=== PATIENT | female | born 2000 | race Caucasian/White ===

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

== ENCOUNTER 2019-02-17 09:27 | Inpatient (IN) | payer OTHER ==
[2019-02-17] MEDS ORDERED: BUTORPHANOL TARTRATE 1 MG/ML VIAL IVPB ONE (09:54)
[2019-02-17] MEDS ORDERED: AMPICILLIN - 2 GM in SODIUM CHLORIDE 100 ML IVPB ONE (09:55)
[2019-02-17] MEDS ORDERED: AMPICILLIN SODIUM 2 GM VIAL ONE (09:59)
[2019-02-17] MEDS ORDERED: DEXTROSE 5%-LACTATED RINGERS 1,000 ML IV SCH (10:00)
--- NOTE | 2019-02-17 10:02 | HP ---
Past Medical History - Admission Chief Complaint: PPROM History of Present Illness: 18yo @ 35.3wks by AJITH 03/21/19 who presents with PPROM 8:30AM, clear fluid. No VB. Denies ctx. +FM Preg uncomplicated History Source: Patient - Past Medical History ...: 1 ...Para: 0 ... Weeks Gestation by Dates: 35.3 ...EDC by Dates: 03/21/19 - Past Surgical History Past Surgical History: Yes: None Hx Myomectomy: No Hx Transabdominal Cerclage: No - Smoking History Smoking history: Never smoked Aproximately how many cigarettes per day: 0 - Alcohol/Substance Use Hx Alcohol Use: No Home Medications - Allergies Allergies/Adverse Reactions: Allergies Allergy/AdvReac Type Severity Reaction Status Date / Time No Known Allergies Allergy Verified 02/17/19 10:00 - Home Medications Home Medications: Ambulatory Orders Ferrous Sulfate [Feosol] 325 mg PO DAILY 11/30/18 Vitamins (Sjr) - 1 tab PO DAILY 11/30/18 Review of Systems - Review of Systems Constitutional: denies: No Symptoms, Chills, Diaphoresis, Fever, Lethargy, Loss of Appetite, Malaise, Night Sweats, Unintentional Wgt. Loss, Weakness, Other Cardiovascular: denies: No Symptoms, Chest Pain, Edema, Palpitations, Shortness of Breath, Other Respiratory: denies: No Symptoms, Cough, Exercise Intolerance, Hemoptysis, Orthopnea, PND, Snoring, SOB, SOB on Exertion, Wheezing, Other Gastrointestinal: denies: No Symptoms, Abdominal Pain, Bloating, Constipation, Diarrhea, Dysphagia, Indigestion, Melena, Nausea, Rectal Bleeding, Vomiting, Vomiting Blood, Other Physical Exam - Maternity Constitutional: Yes: Well Nourished, No Distress, Calm - Abdominal Exam/OB Number of Fetuses: Single Presentation: Vertex Contractions: Yes Regularity: Irritability Intensity: Unaware Monitor Mode: External Category: I Accelerations: Non-Uniform Decelerations: None - Vaginal Exam/OB Vaginal Bleediing: No Speculum Exam: Yes (copious clear fluid) Dilatation (cm): 3.5 Effacement (%): 100 Amniotic Membrane Status: Ruptured Nitrazine Test: Positive Amniotic Fluid: Yes: Clear Station: -3 - Physical Exam Edema: No Assessment/Plan 18yo @ 35.3wks here with PPROM, clear fluid Admit to L&D Amp for GBS positive Augment after 4 hours if needed with pitocin Discussed pain management, epidural prn Cat I tracing Anticipate KADE Hyatt MD
[2019-02-17 10:20] LABS: BASO % 0.3 % (0-2.0); EOS % 0.3 % (0-4.5); HEMATOCRIT 38.1 % (32.4-45.2); HEMOGLOBIN 12.4 GM/dL (10.7-15.3); LYMPH % 11.2 % (8-40); MCH 28.3 pg (25.7-33.7); MCHC 32.6 g/dl (32.0-36.0); MEAN CELL VOLUME 86.9 fl (80-96); MEAN PLT VOLUME 9.3 fl (7.5-11.1); MONO % 7.2 % (3.8-10.2); PLATELET COUNT 232 K/MM3 (134-434); RBC 4.39 M/mm3 (3.60-5.2); RDW 13.2 % (11.6-15.6); WHITE BLOOD COUNT 12.2 K/mm3 (4.0-10.0)
[2019-02-17 10:42] LABS: INR 0.95 (0.83-1.09); PROTHROMBIN TIME (PATIENT) 11.2 SEC (9.7-13.0)
[2019-02-17 10:44] LABS: ACTIVATED PTT 31.8 SECONDS (25.2-36.5)
[2019-02-17 10:52] VITALS: BMI 32.4
[2019-02-17 10:53] LABS: CALCIUM 8.8 mg/dL (8.5-10.1); CREATININE 0.4 mg/dL (0.55-1.3)
[2019-02-17 11:42] LABS: RPR NONREACTIVE (NONREACTIVE)
[2019-02-17] MEDS ORDERED: AMPICILLIN SODIUM 1 GM VIAL ONE ×2 (13:55→18:08)
[2019-02-17] MEDS: AMPICILLIN - 1 GM in SODIUM CHLORIDE 100 ML IVPB SCH ×2 (14:02→18:05)
--- NOTE | 2019-02-17 15:25 | PN ---
Progress Note, Labor Vaginal Exam #1 Labor Exam Date: 02/17/19 Labor Exam Time: 03:00 Heart Rate (range): reactive Dilatation: 3 Effacement (%): 60 Amniotic Membrane Status: Leaking Presentation: Vertex/Position Station: -3 (18 y/o G1 @ 35+wks, PPROM, reactive FHT, no evidence of chorio, stable maternal condition. Patient was counseled regarding PPROM, IOL, and PTD. -Pitocin Augmentation -Beta series -Continuous monitoring)
[2019-02-17] MEDS ORDERED: OXYTOCIN 30 UNITS in 0.9% NS 30 UNIT/500 ML INFUS.BAG IVPB SCH (15:30)
[2019-02-17] MEDS ORDERED: BETAMET ACET/BETAMET NA PH 30 MG/5 ML VIAL IM ONE (15:34)
[2019-02-17] MEDS ORDERED: FENTANYL/BUPIVACAINE/NS/PF - PCEA - 50 ML DISP.SYRIN EP ONE (17:30)
--- NOTE | 2019-02-17 17:32 | PN ---
Ante-Partal Exam - Subjective Subjective: Patient is uncomfortable and desires epidural Vital Signs: Vital Signs Temperature 97.6 F 02/17/19 16:00 Pulse Rate 88 02/17/19 16:00 Respiratory Rate 18 02/17/19 16:00 Blood Pressure 97/52 L 02/17/19 16:00 O2 Sat by Pulse Oximetry (%) Bleeding: No - Contractions Contractions: Yes Regularity: Regular - Exam during Labor Heart Rate: 140 (reactive and episodes of non-tracing) Category: I (see note) Monitor Accelerations: Present Monitor Decelerations: None Exam: Vaginal Dilatation (cm): 4 Effacement (%): 80 Amniotic Membrane Status: Leaking Station: -2 (Patient desires epidural) - Assessment/Plan Assessment/Plan: 18 y/o G1 @ 35.3wks, PPROM s/p beta shot #1, reassuring tracing, in pain desiring epidural. -Epidural is OK -post-epidural check -Hold off on pit for now
[2019-02-17] MEDS ORDERED: NALOXONE HCL 0.4 MG/ML VIAL IVPUSH PRN (18:44)
[2019-02-17] MEDS ORDERED: FENTANYL/BUPIVACAINE/NS/PF - PCEA - 50 ML DISP.SYRIN EP SCH (18:45)
--- NOTE | 2019-02-17 19:29 | PN ---
Ante-Partal Exam - Subjective Subjective: Patient evaluated for prolonged deceleration for 6 mins down to 90's and scant vaginal bleeding Vital Signs: Vital Signs Temperature 99.3 F 02/17/19 18:00 Pulse Rate 90 02/17/19 19:00 Respiratory Rate 18 02/17/19 19:00 Blood Pressure 114/62 02/17/19 19:00 O2 Sat by Pulse Oximetry (%) 99 02/17/19 19:00 Bleeding: Yes Bleeding Description: Mild Headache: No Visual changes: No Right upper quadrant pain: No - Contractions Contractions: Yes Regularity: Regular - Exam during Labor Heart Rate: 130 Variability: Moderate Category: II Monitor Accelerations: Absent Monitor Decelerations: Variable Exam: Vaginal Dilatation (cm): 6 Effacement (%): 80 Amniotic Membrane Status: Leaking Amniotic Fluid: Blood Stained Presentation: Vertex Station: -2 Remarks: asynclitic, FSE and IUP placed - Assessment/Plan Assessment/Plan: PPROM and S/P prolonged deceleration, intrauterine resuscitation efforts performed due to prolonged deceleration, scant vaginal bleeding, regular contractions, FHT recovered -expectant management
--- NOTE | 2019-02-17 21:13 | PN ---
Ante-Partal Exam - Subjective Subjective: patient evaluated for progression of labor. She reports rectal pressure Vital Signs: Vital Signs Temperature 98.6 F 02/17/19 20:00 Pulse Rate 90 02/17/19 19:00 Respiratory Rate 18 02/17/19 19:00 Blood Pressure 114/62 02/17/19 19:00 O2 Sat by Pulse Oximetry (%) 99 02/17/19 19:00 Bleeding Description: Mild - Contractions Contractions: Yes Regularity: Regular - Exam during Labor Heart Rate: 140 Variability: Minimal Category: II Monitor Accelerations: Absent Monitor Decelerations: Variable Exam: Vaginal Dilatation (cm): 9 Effacement (%): 100 Presentation: Vertex Station: -2 Remarks: asynclitic, - Assessment/Plan Assessment/Plan: 18 y/o G1 @ 35.3wks, recurrent variables, FHT cat II and intrauterine resuscitation efforts in place. Patient was counseled regarding situation. -Amnio-infusion -continuous monitoring -Re-evaluate
[2019-02-17] MEDS ORDERED: SODIUM CHLORIDE 500 ML IV STA (21:25)
[2019-02-17] MEDS ORDERED: SODIUM CHLORIDE 1,000 ML IV SCH (21:30)
[2019-02-17] MEDS ORDERED: LIDOCAINE HCL 1% PRESERVATIVE FREE - 30ML VIAL ONE (21:54)
[2019-02-17] MEDS ORDERED: OXYTOCIN 20 UNITS in 0.9% NS 20 UNIT/1,000 ML INFUS.BAG IV ONE ×2 (21:54→23:53)
[2019-02-17] MEDS ORDERED: ACETAMINOPHEN 325 MG TABLET (FP) PO PRN (22:31)
[2019-02-17] MEDS ORDERED: BENZOCAINE 20% 57 GM BOTTLE TP PRN (22:31)
[2019-02-17] MEDS ORDERED: BENZOCAINE 28 GM HEMORRHOIDAL OINTMENT TP PRN (22:31)
[2019-02-17] MEDS ORDERED: IBUPROFEN 600 MG TABLET (FP) PO PRN (22:31)
[2019-02-17] MEDS ORDERED: WITCH HAZEL 50% (TUCKS) 40 PAD/JAR PAD TP PRN (22:31)
[2019-02-17] MEDS ORDERED: BISACODYL 10 MG SUPP.RECT RC PRN (22:31)
[2019-02-17 22:44] LABS: VENOUS PC02 50.6 mmHg (41-51); VENOUS PH 7.29 (7.31-7.41)
--- NOTE | 2019-02-17 22:44 | PN ---
Delivery - Delivery Vaginal Delivery: Vacuum Assist (Vacuum appropriately placed at 3+ station. Suction pressure applied to 50mmHG in the green zone. One pull and no pop-off. Infant's head delivered OA. Vacuum was disengaged. Head restituted to MICHAEL and no nuchal cord present. Shoulders delivered without difficulty followed by the rest of the body. Umbilical cord clamped and cut after delay. handed off to NICU attending. Cord segments for blood and gases obtained. Placenta delivered spontaneously and intact with 3VC. Exam revealed no laceration, just periurethral abrasions. Fundus is firm and excellent hemostasis noted. Sponge/ instrument count is correct x 2 and confirmed by nurse.) Type of Anesthesia: Epidural Episiotomy/Laceration: None EBL (cc): 200 Delivery, Single - Feeding Plan Initial Plan: Elected not to breastfeed exclusively throughout hospitalization
[2019-02-17] MEDS ORDERED: OXYTOCIN 20 UNITS in 0.9% NS 20 UNIT/1,000 ML INFUS.BAG IV SCH (22:45)
[2019-02-17 22:47] LABS: ARTERIAL BLD GAS O2 SATURATION 3.9 % (95-98); ARTERIAL BLOOD GAS BASE EXCESS -5.5 meq/l (-2-2)
[2019-02-17 22:51] LABS: ARTERIAL BLOOD GAS pH 7.19 (7.35-7.45)
--- NOTE | 2019-02-18 07:37 | PN ---
Post Progress Note - Subjective Subjective: Patient is doing well, ambulating, voiding, lochia decreased and will attempt breast feeding Post Day: 1 Type of Delivery: Vital Signs: Vital Signs Temperature 97.7 F 02/18/19 05:43 Pulse Rate 86 02/18/19 05:43 Respiratory Rate 20 02/18/19 05:43 Blood Pressure 103/63 02/18/19 05:43 O2 Sat by Pulse Oximetry (%) 100 02/17/19 21:45 Breast Exam: Yes: Soft Uterus: Yes: Fundus Firm Abdomen/GI: Yes: Abdomen soft Lochia, amount: Moderate Extremities: Yes: Calves non-tender Perineum: Yes: Intact Activity: Ambulating - Labs Labs: CBC WBC 12.2 K/mm3 (4.0-10.0) H 02/17/19 10:10 RBC 4.39 M/mm3 (3.60-5.2) 02/17/19 10:10 Hgb 12.4 GM/dL (10.7-15.3) 02/17/19 10:10 Hct 38.1 % (32.4-45.2) 02/17/19 10:10 MCV 86.9 fl (80-96) 02/17/19 10:10 MCH 28.3 pg (25.7-33.7) 02/17/19 10:10 MCHC 32.6 g/dl (32.0-36.0) 02/17/19 10:10 RDW 13.2 % (11.6-15.6) 02/17/19 10:10 Plt Count 232 K/MM3 (134-434) 02/17/19 10:10 MPV 9.3 fl (7.5-11.1) 02/17/19 10:10 Absolute Neuts (auto) 9.9 K/mm3 (1.5-8.0) H 02/17/19 10:10 Neutrophils % 81.0 % (42.8-82.8) 02/17/19 10:10 Lymphocytes % 11.2 % (8-40) 02/17/19 10:10 Monocytes % 7.2 % (3.8-10.2) 02/17/19 10:10 Eosinophils % 0.3 % (0-4.5) 02/17/19 10:10 Basophils % 0.3 % (0-2.0) 02/17/19 10:10 Nucleated RBC % 0 % (0-0) 02/17/19 10:10 Assessment/Plan 18 y/o on PPD # 1 in stable condition -Continue PP care -Encourage ambulation -Anticipate D/C on PPD #2
[2019-02-18 08:07] LABS: BASO % 0.2 % (0-2.0); HEMATOCRIT 34.9 % (32.4-45.2); HEMOGLOBIN 11.4 GM/dL (10.7-15.3); LYMPH % 5.8 % (8-40); MCH 28.4 pg (25.7-33.7); MCHC 32.8 g/dl (32.0-36.0); MEAN CELL VOLUME 86.6 fl (80-96); MEAN PLT VOLUME 9.4 fl (7.5-11.1); PLATELET COUNT 279 K/MM3 (134-434); RBC 4.03 M/mm3 (3.60-5.2); RDW 13.3 % (11.6-15.6); WHITE BLOOD COUNT 22.3 K/mm3 (4.0-10.0)
[2019-02-18] MEDS: FERROUS SO4 325 MG TABLET (FP) PO SCH ×3 (08:15→17:20)
[2019-02-18] MEDS ORDERED: FLU VACCINE QUAD 60 MCG/0.5 ML (MDV 18-19) IM ONE (10:00)
[2019-02-18 10:29] LABS: ANISOCYTOSIS 0; MACROCYTOSIS 0; PLATELET ESTIMATE NORMAL
[2019-02-18] MEDS: AMPICILLIN - 1 GM in SODIUM CHLORIDE 100 ML IVPB SCH (10:47)
[2019-02-18] MEDS: PRENATAL VITAMINS W/ FOLIC ACID TABLET (FP) PO SCH (10:53)
--- NOTE | 2019-02-19 04:13 | PN ---
Post Progress Note Post Day: 2 Type of Delivery: Vital Signs: Vital Signs Temperature 98.1 F 02/18/19 20:45 Pulse Rate 80 02/18/19 20:45 Respiratory Rate 18 02/18/19 20:45 Blood Pressure 101/68 02/18/19 20:45 O2 Sat by Pulse Oximetry (%) 100 02/17/19 21:45 Breast Exam: Yes: Soft Uterus: Yes: Fundus Firm Abdomen/GI: Yes: Abdomen soft Lochia: Yes: Rubra Lochia, amount: Small Extremities: Yes: Calves non-tender Perineum: Yes: Intact Activity: Ambulating - Labs Labs: CBC WBC 22.3 K/mm3 (4.0-10.0) H 02/18/19 07:30 RBC 4.03 M/mm3 (3.60-5.2) 02/18/19 07:30 Hgb 11.4 GM/dL (10.7-15.3) 02/18/19 07:30 Hct 34.9 % (32.4-45.2) 02/18/19 07:30 MCV 86.6 fl (80-96) 02/18/19 07:30 MCH 28.4 pg (25.7-33.7) 02/18/19 07:30 MCHC 32.8 g/dl (32.0-36.0) 02/18/19 07:30 RDW 13.3 % (11.6-15.6) 02/18/19 07:30 Plt Count 279 K/MM3 (134-434) D 02/18/19 07:30 MPV 9.4 fl (7.5-11.1) 02/18/19 07:30 Absolute Neuts (auto) 19.4 K/mm3 (1.5-8.0) H 02/18/19 07:30 Neutrophils % 87.0 % (42.8-82.8) H 02/18/19 07:30 Neutrophils % (Manual) 80.0 % (42.8-82.8) 02/18/19 07:30 Band Neutrophils % 7.0 % 02/18/19 07:30 Lymphocytes % 5.8 % (8-40) L D 02/18/19 07:30 Lymphocytes % (Manual) 7.0 % (8-40) L 02/18/19 07:30 Monocytes % 7.0 % (3.8-10.2) 02/18/19 07:30 Monocytes % (Manual) 5 % (3.8-10.2) 02/18/19 07:30 Eosinophils % 0.0 % (0-4.5) D 02/18/19 07:30 Eosinophils % (Manual) 0.0 % (0-4.5) 02/18/19 07:30 Basophils % 0.2 % (0-2.0) 02/18/19 07:30 Basophils % (Manual) 0.0 % (0-2.0) 02/18/19 07:30 Myelocytes % (Man) 0 % (0-2) 02/18/19 07:30 Promyelocytes % (Man) 0 % (0-2) 02/18/19 07:30 Blast Cells % (Manual) 0 % (0-0) 02/18/19 07:30 Nucleated RBC % 0 % (0-0) 02/18/19 07:30 Metamyelocytes 0 % (0-2) 02/18/19 07:30 Hypochromia 0 02/18/19 07:30 Platelet Estimate Normal 02/18/19 07:30 Polychromasia 0 02/18/19 07:30 Poikilocytosis 0 02/18/19 07:30 Anisocytosis 0 02/18/19 07:30 Microcytosis 0 02/18/19 07:30 Macrocytosis 0 02/18/19 07:30 Assessment/Plan oob reg diet dc home
[2019-02-19 09:12] VITALS: BP 115/72; PULSE 74; TEMP 98.4
[2019-02-19] MEDS: PRENATAL VITAMINS W/ FOLIC ACID TABLET (FP) PO SCH (09:19)
[2019-02-19] MEDS: FERROUS SO4 325 MG TABLET (FP) PO SCH ×2 (09:19→14:37)
--- NOTE | 2019-02-27 12:48 | DS ---
Physical Examination Vital Signs: Vital Signs Temperature 98.4 F 02/19/19 09:05 Pulse Rate 74 02/19/19 09:05 Respiratory Rate 18 02/19/19 09:05 Blood Pressure 115/72 02/19/19 09:05 O2 Sat by Pulse Oximetry (%) 100 02/17/19 21:45 Constitutional: Yes: Well Nourished, No Distress, Calm Eyes: Yes: WNL, Conjunctiva Clear, EOM Intact HENT: Yes: WNL, Atraumatic, Normocephalic Neck: Yes: WNL, Supple, Trachea Midline Cardiovascular: Yes: WNL, Regular Rate and Rhythm Respiratory: Yes: WNL, Regular, CTA Bilaterally Gastrointestinal: Yes: WNL, Normal Bowel Sounds Musculoskeletal: Yes: WNL Extremities: Yes: WNL Edema: No Integumentary: Yes: WNL Neurological: Yes: WNL, Alert, Oriented ...Motor Strength: WNL Psychiatric: Yes: WNL Labs: CBC, BMP 02/18/19 07:30 02/17/19 10:10 Discharge Summary Reason For Visit: LABOR ADMISSION Procedures: Principal: Hospital Course: Patient presented with PPROM at 35weeks, she received antibiotics. After sufficient GBS prophylaxis, she was given pitocin augmentation. She had an uncomplicated . She met all milestones. She was discharged home in stable condition on PPD#2 M. MD Edmar Condition: Good - Instructions Diet, Activity, Other Instructions: Regular Diet Referrals: Jeanine Torres CNM [Certified Nurse Cartoonist Special Effects] - Disposition: HOME - Home Medications Comprehensive Discharge Medication List: Ambulatory Orders Ferrous Sulfate [Feosol] 325 mg PO DAILY 11/30/18 Vitamins (Sjr) - 1 tab PO DAILY 11/30/18 Ibuprofen 600 mg PO Q6H PRN #30 tablet 02/19/19
== END 2019-02-19 18:00 | disposition home or self-care (01) | DRG 560 ==
LOC: JLDR 09:27 → J3W 23:45
PROVIDERS: ADMIT Obstetrics & Gynecology; ATTEND Obstetrics & Gynecology
PROC: 10D07Z6 Extraction of Products of Conception, Vacuum, Via Natural or Artificial Opening (ICD-10-PCS; principal; 2019-02-17)
DX: O76 Abnormality in fetal heart rate and rhythm complicating labor and delivery (principal); O66.5 Attempted application of vacuum extractor and forceps; O99.824 Streptococcus B carrier state complicating childbirth; Z3A.35 35 weeks gestation of pregnancy; Z37.0 Single live birth
CPT/HCPCS: 36415; 36600; 59409; 80048; 82803; 85025; 85610; 85730; 86593; 86850; 86900; 86901; 87389; 90686; 96372; G0008

== ENCOUNTER 2019-03-13 23:22 | Emergency (ER) | payer OTHER | END 2019-03-14 03:10 | disposition home or self-care (01) | LOC: JER 03-14 03:10 | DX: R07.81 Pleurodynia (principal) ==

== ENCOUNTER 2019-06-15 04:29 | Emergency (ER) | payer OTHER ==
[2019-06-15 04:47] VITALS: BMI 32.2
--- NOTE | 2019-06-15 05:16 | PDOC ---
History of Present Illness - General Chief Complaint: Pain Stated Complaint: ABD PAIN Time Seen by Provider: 06/15/19 05:16 - History of Present Illness Initial Comments: 06/15/19 05:48 18 F with no PMH p/w four months of worsening abdominal pain. She reports that the pain began all of a sudden, and has been intermittent since its original onset. She rates the pain 10/10, radiating to her back, described as dull, no alleviation with any otc medications including tylenol, motrin. She reports that the pain is primarily localized around her ribs. SHe reports being worked up for this pain previously with no result. She denies any nausea, sob, chest pain, fevers, chills, palpitations at this time. Past History - Past Medical History Allergies/Adverse Reactions: Allergies Allergy/AdvReac Type Severity Reaction Status Date / Time No Known Allergies Allergy Verified 06/15/19 04:47 Home Medications: Ambulatory Orders NK [No Known Home Medication] 03/14/19 Asthma: No Cancer: No Cardiac Disorders: No COPD: No CHF: No Diabetes: No HTN: No Seizures: No Thyroid Disease: No - Immunization History Immunization Up to Date: Yes - Suicide/Smoking/Psychosocial Hx Smoking Status: No Smoking History: Never smoked Have you smoked in the past 12 months: No Number of Cigarettes Smoked Daily: 0 Hx Alcohol Use: No Drug/Substance Use Hx: No Substance Use Type: None Hx Substance Use Treatment: No *Physical Exam - Vital Signs Last Vital Signs Temp Pulse Resp BP Pulse Ox 97.9 F 99 H 18 124/50 L 100 06/15/19 04:46 06/15/19 04:46 06/15/19 04:46 06/15/19 04:46 06/15/19 04:46 Medical Decision Making - Medical Decision Making 06/15/19 05:52 18 F with no PMH p/w four months of abdominal pain, RUQ tenderness, consistent with biliary colic vs msk pain. Plan: RUQ ultrasound CBC CMP Dispo: Pending labs, imaging, likely home *DC/Admit/Observation/Transfer - Referrals Referrals: Brett Castro [Primary Care Provider] - - Patient Instructions - Post Discharge Activity
--- NOTE | 2019-06-15 05:17 | PDOC ---
Attending Attestation - Resident Resident Name: Xavi Molina - ED Attending Attestation I have performed the following: I have examined & evaluated the patient, The case was reviewed & discussed with the resident, I agree w/resident's findings & plan - HPI HPI: 06/15/19 06:08 Pt comes with RUQ pain; pt states pain is worse now. She has had the pain on off x 4 mos. She is ; expecting menses later this month No flank pain. She is not sure if GB disease runs in the family; she has neither lost a lot of weight or put on a lot of weight. - Physicial Exam PE: 06/15/19 22:24 Pt has no fever, but she has RUQ Pain, with rebound. No guarding. No RLQ pain and no left sided pain. no flank pain. Agree with resident exam - Medical Decision Making 06/15/19 22:25 Pt will be signed out to the day ER doctor. They will get the RUQ sono and disposition the patient.
[2019-06-15] MEDS ORDERED: ACETAMINOPHEN 1000 MG/100 ML VIAL (NON FORMULARY) IVPB ONE (06:07)
[2019-06-15] MEDS ORDERED: ACETAMINOPHEN INJECTION 100 ML IVPB ONE (06:13)
[2019-06-15 07:03] VITALS: BP 118/56; PULSE 79; TEMP 97.7
--- NOTE | 2019-06-15 07:06 | PDOC ---
*Physical Exam - Vital Signs Last Vital Signs Temp Pulse Resp BP Pulse Ox 97.7 F 79 20 118/56 L 100 06/15/19 05:35 06/15/19 05:35 06/15/19 05:35 06/15/19 05:35 06/15/19 05:35 ED Treatment Course - LABORATORY CBC & Chemistry Diagram: 06/15/19 06:30 06/15/19 06:15 - Medications Given in the ED: ED Medications Discontinued Medications Generic Name Dose Route Start Last Admin Trade Name Avery PRN Reason Stop Dose Admin Acetaminophen 1,000 mg 06/15/19 06:07 06/15/19 06:34 Ofirmev Injection - IVPB 06/15/19 06:08 1,000 mg ONCE ONE Administration Medical Decision Making - Medical Decision Making 06/15/19 07:05 Sign out received from Dr Molina. Pt is an otherwise healthy 18yo who presents with 4 months of upper abdominal pain, R>L. She denies associated symptoms. ED course so far remarkable for: Labs sent Pt waiting for abdominal US Resting comfortably 06/15/19 09:58 - US completed. Shows gallbladder thickening, sludge, multiple small stones. Radiology recommending HIDA - Discussed w/ patient, outpatient v inpatient management. Pt states she is still having pain and would prefer to stay. - Call to Dr Barros for admission 06/15/19 10:42 - Spoke to Dr Barros. As pt's labs are WNL and she has no fever or other sign of infection, she may follow up as an outpatient for additional workup. Pt should come to the office tomorrow to schedule a HIDA and follow up. - Updated pt with this plan. She understands and agrees. She will call first thing tomorrow morning to schedule her appointment. Discussed with Dr Owens. Viridiana Gunn PGY2 *DC/Admit/Observation/Transfer Diagnosis at time of Disposition: Cholelithiasis Qualifiers: Cholelithiasis location: gallbladder Cholecystitis presence: with cholecystitis Cholecystitis acuity: unspecified acuity Biliary obstruction: without biliary obstruction Qualified Code(s): K80.10 - Calculus of gallbladder with chronic cholecystitis without obstruction - Discharge Dispostion Disposition: HOME Condition at time of disposition: Stable Decision to Admit order: No - Referrals Referrals: Brett Castro [Primary Care Provider] - - Patient Instructions Printed Discharge Instructions: DI for Gallstones, HIDA Scan Additional Instructions: Discharge Instructions: You were seen in the ED for upper abdominal pain. You were found to have gallstones and some gallbladder information. You will need additional testing and should follow up with a specialist. Please call you regular doctor first thing tomorrow morning to arrange an appointment. Dr Barros, who works with Dr Castro, was contacted today, and she is aware that you will be coming to the office tomorrow morning to schedule your testing. Follow a low-fat diet. This will help improve or resolve your symptoms. Avoid fatty, fried, or greasy foods. Seek immediate care if you develop worsening symptoms, fever to 101F, severe vomiting, you become dehydrated, or you have any other medical emergency. - Post Discharge Activity
[2019-06-15 07:25] LABS: BASO % 0.6 % (0-2.0); EOS % 1.9 % (0-4.5); HEMATOCRIT 39.9 % (32.4-45.2); LYMPH % 19.6 % (8-40); MCH 28.1 pg (25.7-33.7); MCHC 32.6 g/dl (32.0-36.0); MEAN CELL VOLUME 86.2 fl (80-96); MEAN PLT VOLUME 9.2 fl (7.5-11.1); MONO % 7.1 % (3.8-10.2); NEUT % 70.8 % (42.8-82.8); PLATELET COUNT 298 K/MM3 (134-434); RBC 4.63 M/mm3 (3.60-5.2); RDW 12.9 % (11.6-15.6); WHITE BLOOD COUNT 8.7 K/mm3 (4.0-10.0)
[2019-06-15 08:40] LABS: ALBUMIN 3.6 g/dl (3.4-5.0); BILIRUBIN,TOTAL 0.7 mg/dL (0.2-1); BLOOD UREA NITROGEN 11.1 mg/dL (7-18); CALCIUM 9.2 mg/dL (8.5-10.1); CREATININE 0.7 mg/dL (0.55-1.3); TOT PROT 7.4 g/dl (6.4-8.2)
== END 2019-06-15 11:00 | disposition home or self-care (01) ==
LOC: JER 04:29
PROC: 3E033NZ Introduction of Analgesics, Hypnotics, Sedatives into Peripheral Vein, Percutaneous Approach (ICD-10-PCS; principal; 2019-06-15)
DX: K80.10 Calculus of gallbladder with chronic cholecystitis without obstruction (principal)
CPT/HCPCS: 36415; 76705-TC; 80053; 84702; 85025; 96374; 99283-25; J0131

== ENCOUNTER 2019-07-11 08:13 | Day surgery (SDC) | payer OTHER ==
[2019-07-10 09:53] VITALS: BMI 26.6
[2019-07-11] MEDS ORDERED: EPHEDRINE SULFATE/0.9% NACL/PF 50 MG/10 ML SYRINGE NR ONE (08:33)
[2019-07-11] MEDS ORDERED: MIDAZOLAM HCL 2 MG/2 ML SINGLE DOSE VIAL ONE (08:34)
[2019-07-11] MEDS ORDERED: SUCCINYLCHOLINE CHLORIDE 200 MG/10 ML SYRINGE ONE (08:34)
[2019-07-11] MEDS ORDERED: ROCURONIUM BROMIDE 50 MG/5 ML SYRINGE ONE (08:34)
[2019-07-11] MEDS ORDERED: PROPOFOL 20 ML ONE ×2 (08:34)
[2019-07-11] MEDS ORDERED: fentaNYL CITRATE 250 MCG/5 ML VIAL ONE (08:34)
--- NOTE | 2019-07-11 09:12 | HP ---
History & Physical Update - Physical Physical: No Change - Assessment Assessment: No Change - Plan Plan: No Change (=Upper abdominal pain , secondary to cholelithiasis. plan : laparoscopic cholecystectomy , possible open. Therb procedure has been explained, with risks, benefits and complications, and alternatives.)
[2019-07-11] MEDS ORDERED: ONDANSETRON 4 MG/2 ML VIAL IVPUSH PRN (09:16)
[2019-07-11] MEDS ORDERED: LACTATED RINGERS SOLUTION 1,000 ML IV SCH (09:30)
[2019-07-11] MEDS ORDERED: ceFAZolin SODIUM 1 GM VIAL IVPB ONE (09:30)
[2019-07-11] MEDS ORDERED: BUPIVACAINE HCL/PF 0.5% (5 MG/ML) 30 ML VIAL IJ ONE (09:38)
[2019-07-11] MEDS ORDERED: NEOSTIGMINE METHYLSULFATE 0.5 MG/ML - 10 ML MDV ONE (09:48)
[2019-07-11] MEDS ORDERED: LIDOCAINE HCL/PF 2% SDV 5ML VIAL ONE (10:01)
[2019-07-11] MEDS ORDERED: DEXAMETHASONE SOD PHOSPHATE 4 MG/1 ML VIAL ONE (10:01)
[2019-07-11] MEDS ORDERED: LIDOCAINE HCL 2% JELLY (5 ML/TUBE) ONE (10:01)
[2019-07-11] MEDS ORDERED: GLYCOPYRROLATE 0.2 MG/1 ML VIAL ONE (10:01)
[2019-07-11] MEDS ORDERED: KETOROLAC TROMETHAMINE 30 MG/1 ML VIAL ONE (10:01)
--- NOTE | 2019-07-11 10:13 | OP ---
Operative Note - Note: Operative Date: 07/11/19 Pre-Operative Diagnosis: Cholelithiasis, cholecystitis. Operation: Laparoscopic cholecystectomy , lysis of intestinal and omental adhesions. Findings: Cholelthiais with cholecystitis, extensive duodenal and omental adhesions, all around the gallbladder upto the fundus of the gallbladder. Surgeon: Chloe Mcclendon Anesthesiologist/PROCESS SAFETY MANAGEMENT ENGINEER: Arun Jordan Anesthesia: General Specimens Removed: Gallbladder. Estimated Blood Loss (mls): 5 Operative Report Dictated: Yes
--- NOTE | 2019-07-11 10:26 | SURG ---
Surgery Head Setter Note Head Setter: Arun Jordan PA-C Date of Service: 07/11/19 Diagnosis: Cholelithiasis, cholecystitis. Procedure: Laparoscopic cholecystectomy , lysis of intestinal and omental adhesions. I was present for the entirety of the operative procedure. For further detail, please refer to operative report. Visit type - Case Type Case Type: Scheduled - Emergency Emergency Visit: No - New patient This patient is new to me today: Yes Date on this admission: 07/11/19 - Critical Care Critical Care patient: No
--- NOTE | 2019-07-11 11:44 | OP ---
DATE OF OPERATION: 07/11/2019 PREOPERATIVE DIAGNOSIS: Cholelithiasis with cholecystitis. POSTOPERATIVE DIAGNOSIS: Cholelithiasis with cholecystitis, enteral and omental adhesions. OPERATIVE PROCEDURE: Laparoscopic cholecystectomy with lysis of intestinal and omental adhesions. SURGEON: Galen Mcclendon MD LIQUIFIED NATURAL GAS TECHNICIAN: AL Baxter ANESTHESIA: General anesthesia. OPERATIVE DESCRIPTION: This 18-year-old woman was seen in the office with right upper quadrant abdominal pain for a few months. She had been to the emergency room where she was worked up, found to have gallstones with cholecystitis. Patient was brought in for laparoscopic cholecystectomy, possible open cholecystectomy. Risks, benefits, and complications have been discussed with the patient and consent obtained. Patient was brought to the operating room. General anesthesia was administered. The abdomen was painted and draped. Time-out was called. Patient was given 2 g of Ancef. An incision was made in the infraumbilical portion of the umbilicus, which was deepened to incise the skin, subcutaneous tissue, and the linea alba vertically in the midline. The peritoneum was incised, and the abdominal cavity was entered. Two stay sutures of 2-0 Vicryl were obtained on either side of the midline to anchor the 10- to 12-mm Jamison trocar, which was inserted into the abdominal cavity. A 10- to 12-mm laparoscopic trocar of the Jamison type was introduced into the abdominal cavity, and the abdomen was insufflated with carbon dioxide at 6 L/min with maximum intra-abdominal pressure of 15 mmHg. A 5-mm camera was introduced into the abdominal cavity. Three small incisions were made, 1 in the right upper quadrant of the abdomen along the anterior axillary line, another along the mid clavicular line also in the anterior wall of the abdomen about 2-3 fingerbreadths below the costal margin. A 3rd incision was made in the midline in the subxiphoid area, 5-mm trocars were inserted through these 3 incisions. All of them were visualized entering the abdominal cavity under direct vision of the camera. The subxiphoid trocar was inserted to the right of the falciform ligament. The instrument was introduced directly under vision. Gallbladder was covered with bowel and omentum. The liver was then elevated with an endo peanut through the umbilical port. The gallbladder was completely covered with mentum, and the duodenum was pulled up towards the body of the gallbladder. By gentle retraction on the omentum away from the gallbladder through the right upper quadrant port, the edge of the omentum from the gallbladder was visualized. With an Endo Paul, the gallbladder was lysed carefully with sharp and blunt dissection as well as using electrocautery thus freeing the fundus and the distal body of the gallbladder. The fundus of the gallbladder was then grasped with a grasper through the lateral 5-mm port and retracted cephalad and laterally thus exposing the rest of the gallbladder. With blunt dissection as well as sharp dissection, the duodenum was released from the gallbladder, and the infundibulum of the gallbladder and the cystic duct were visualized. With another 5-mm grasper through the medial 5-mm port, the infundibulum was dissected inferiorly and laterally thus exposing Calot triangle. With sharp and blunt dissection, the cystic duct was isolated circumferentially with Endo Paul. The cystic duct was then divided between clips. The cystic artery was brought into view and was, likewise, divided between clips. The gallbladder was then dissected off the gallbladder bed using electrocautery as well as sharp and blunt dissection with Endo Paul on either side of the gallbladder incising the peritoneal reflection by 2-3 mm from the edge of the liver on either side. The gallbladder was dissected off the gallbladder bed all the way to the fundus of the gallbladder, and the cholecystectomy was accomplished. Hemostasis was maintained throughout the procedure using electrocautery. An EndoCatch was then introduced through the umbilical port the camera being switched to the subxiphoid port. The gallbladder was placed in the EndoCatch and retrieved out of the abdominal cavity. There were multiple small stones within the gallbladder. The gallbladder fossa was very clean. There was no bleeding, and the gallbladder bed was dry. The instruments were withdrawn under direct vision. The linea alba in the midline was approximated with interrupted and [id number] 2-0 Vicryl sutures, 0.5% Marcaine was then injected into the wounds and the linea alba. Skin was approximated with buried interrupted 4-0 Biosyn sutures. Dermabond was applied across the skin edges. Estimated blood loss was less than 5 mL. Patient tolerated the procedure well, was extubated, and sent to the recovery room in satisfactory and stable condition. Aris [id number] MTDD
[2019-07-11 13:07] VITALS: TEMP 98.2
[2019-07-11 13:54] VITALS: BP 124/68; PULSE 97
--- NOTE | 2019-07-15 09:45 | PATH ---
Surgical Pathology Report Patient Name: CATHY BOSS Med. Rec. #: [id number] /Age/Gender: 2000 (Age: 18) / F Account: [id number] Location: [facility] SURGICAL Taken: 07/11/2019 Received: 07/11/2019 Reported: 07/15/2019 Physicians: Galen Mcclendon M.D. Specimen(s) Received GALLBLADDER Clinical History Calculus of gallbladder Final Diagnosis GALLBLADDER, CHOLECYSTECTOMY: FOCAL MILD ACUTE SUPERIMPOSED ON CHRONIC CHOLECYSTITIS. CHOLELITHIASIS. ONE REACTIVE LYMPH NODE. Electronically Signed Kendra Maynard M.D. Gross Description Received in formalin, labeled "gallbladder," is a 6.5 x 1.5 x 1.5 cm. gallbladder with a 0.2 cm. in length portion of cystic duct attached. One lymph node is present. The outer surface varies from smooth to shaggy. The lumen contains with bile and many yellow stones, which have average 0.2 cm greatest dimension. The mucosa is focally superficial eroded. The wall of the gallbladder measures 0.2cm. in thickness. Sports Trainer sections are submitted in one cassette. KWS/07/11/2019 sulki/07/11/2019
== END 2019-07-11 13:54 | disposition home or self-care (01) ==
LOC: JASU-SURG 08:13
PROVIDERS: ATTEND Specialist
PROC: 0FT44ZZ Resection of Gallbladder, Percutaneous Endoscopic Approach (ICD-10-PCS; principal; 2019-07-11 09:30)
DX: K80.10 Calculus of gallbladder with chronic cholecystitis without obstruction (principal); K82.8 Other specified diseases of gallbladder; K66.0 Peritoneal adhesions (postprocedural) (postinfection)
CPT/HCPCS: 84703; 88304-TC; 94760

== ENCOUNTER 2024-09-19 07:50 | Inpatient (IN) | payer OTHER ==
[2024-09-19 09:18] VITALS: BMI 39.4
[2024-09-19 10:12] LABS: BASO % 0.2 % (0-2.0); EOS % 0.3 % (0-4.5); HEMATOCRIT 36.4 % (32.4-45.2); MCH 28.2 pg (25.7-33.7); MCHC 33.1 g/dl (32.0-36.0); MEAN CELL VOLUME 85.2 fl (80-96); MEAN PLT VOLUME 9.2 fl (7.5-11.1); NEUT % 80.5 % (42.8-82.8); PLATELET COUNT 246 10^3/uL (134-434); RBC 4.27 M/mm3 (3.60-5.2); RDW 13.7 % (11.6-15.6); WHITE BLOOD COUNT 9.3 K/mm3 (4.0-10.0)
[2024-09-19 10:20] LABS: POTASSIUM 3.9 mmol/L (3.5-5.1)
[2024-09-19 10:21] LABS: CALCIUM 9.1 mg/dL (8.5-10.1)
[2024-09-19 10:22] LABS: BLOOD UREA NITROGEN 7.6 mg/dL (7-18)
[2024-09-19 10:25] LABS: CREATININE 0.5 mg/dL (0.55-1.3)
[2024-09-19 10:26] LABS: INR 0.95 (0.83-1.09); PROTHROMBIN TIME (PATIENT) 10.8 SEC (9.7-13.0)
[2024-09-19 10:29] LABS: ACTIVATED PTT 29.2 SECONDS (25.2-36.5)
[2024-09-19] MEDS ORDERED: OXYTOCIN 20 UNITS in 0.9% NS 20 UNIT/1,000 ML INFUS.BAG IV ONE (10:37)
[2024-09-19] MEDS: OXYTOCIN 20 UNITS in 0.9% NS 20 UNIT/1,000 ML INFUS.BAG IV SCH (11:38)
[2024-09-19] MEDS ORDERED: BENZOCAINE 28 GM HEMORRHOIDAL OINTMENT TP PRN (11:59)
[2024-09-19] MEDS ORDERED: BISACODYL 10 MG SUPP.RECT RC PRN (11:59)
[2024-09-19] MEDS ORDERED: WITCH HAZEL 50% (TUCKS) 40 PAD/JAR PAD TP PRN (11:59)
[2024-09-19] MEDS ORDERED: ACETAMINOPHEN 325 MG TABLET (FP) PO PRN (11:59)
[2024-09-19] MEDS ORDERED: oxyCODONE HCL 5 MG TABLET PO PRN (11:59)
[2024-09-19] MEDS ORDERED: METHYLERGONOVINE MALEATE 0.2 MG/1 ML AMP IM PRN (11:59)
[2024-09-19] MEDS ORDERED: BENZOCAINE 20% 57 GM BOTTLE TP PRN (11:59)
[2024-09-19] MEDS: DEXTROSE 5%-LACTATED RINGERS 1,000 ML IV SCH (12:12)
[2024-09-19 14:39] VITALS: RESP 18
[2024-09-19] MEDS: MAG HYDROX/AL HYDROX/SIMETH 30 ML UNIT-DOSE CUP PO PRN (23:03)
[2024-09-20 07:32] LABS: BASO % 0.7 % (0-2.0); EOS % 0.9 % (0-4.5); HEMATOCRIT 34.9 % (32.4-45.2); HEMOGLOBIN 11.3 GM/dL (10.7-15.3); LYMPH % 22.5 % (8-40); MCH 27.9 pg (25.7-33.7); MCHC 32.3 g/dl (32.0-36.0); MEAN CELL VOLUME 86.4 fl (80-96); MEAN PLT VOLUME 8.8 fl (7.5-11.1); MONO % 7.9 % (3.8-10.2); PLATELET COUNT 254 10^3/uL (134-434); RBC 4.04 M/mm3 (3.60-5.2); RDW 13.8 % (11.6-15.6); WHITE BLOOD COUNT 10.3 K/mm3 (4.0-10.0)
[2024-09-20] MEDS: IBUPROFEN 600 MG TABLET (FP) PO PRN (09:39)
[2024-09-20] MEDS: FLU VACCINE (FLULAVAL) PF 45 MCG/0.5 ML SYRINGE 2024-2025 IM ONE (09:40)
[2024-09-20] MEDS: DIPHTH,PERTUSS(ACELL),TET 0.5 ML DISP.SYRIN IM ONE (09:40)
[2024-09-20 10:51] VITALS: TEMP 97.5
[2024-09-20] MEDS ORDERED: SENNOSIDES/DOCUSATE COMBO (SENNA PLUS) TABLET (UD) PO PRN (22:00)
[2024-09-21 09:59] VITALS: BP 103/72; PULSE 77
== END 2024-09-21 14:50 | disposition home or self-care (01) | DRG 560 ==
LOC: JDEL 07:50 → JLDR 08:55 → J3W 14:05
PROVIDERS: ADMIT Obstetrics & Gynecology; ATTEND Obstetrics & Gynecology
PROC: 10E0XZZ Delivery of Products of Conception, External Approach (ICD-10-PCS; principal; 2024-09-19)
DX: O80 Encounter for full-term uncomplicated delivery (principal); Z3A.37 37 weeks gestation of pregnancy; Z37.0 Single live birth
CPT/HCPCS: 36415; 59025; 59409; 80048; 85025; 85610; 85730; 86780; 86850; 86900; 86901; 90656; 90715; G0008